=== PATIENT | female | born 1950 | race African-American/Black ===

== ENCOUNTER 2017-06-22 17:35 | Emergency (ER) | payer BC, MEDICAID, MEDICARE ==
[~2017-06-22] VITALS: Ht 160 cm; Wt 57.6 kg
[2017-06-22] MEDS ORDERED: MEMA1CAP PO (18:05)
[2017-06-22] MEDS ORDERED: DONE5TAB33 PO (18:05)
[2017-06-22] MEDS ORDERED: SODIUM CHLORIDE 0.9% 1,000 ML IV ONE (20:32)
[2017-06-22 21:07] LABS: BASOPHILS % 0.6 % (0.0-2.0); EOSINOPHILS % 0.4 % (0.0-5.0); HEMATOCRIT. 37.8 % (36.0-48.0); HEMOGLOBIN. 12.3 g/dL (12.0-16.0); LYMPHOCYTES % 19.1 % (20.0-50.0); MEAN CORPUSCULAR HEMOGLOBIN 27.3 pg (28.0-32.0); MONOCYTES % 7.2 % (2.0-8.0); NEUTROPHILS % 72.7 % (40.0-76.0); PLATELET 277 x1000/uL (130-400); RED CELL DISTRIBUTION WIDTH 13.9 % (11.6-14.6)
[2017-06-22 21:11] LABS: INR 1.1; PROTHROMBIN TIME 11.1 sec (9.4-11.6)
[2017-06-22 21:13] LABS: CHLORIDE 104 mEq/L (98-107)
[2017-06-22 22:12] LABS: CLARITY URINE CLEAR (CLEAR); COLOR URINE YELLOW (YELLOW); KETONES URINE NEGATIVE (NEGATIVE); LEUKOCYTE ESTERASE URINE NEGATIVE (NEGATIVE); NITRITE URINE NEGATIVE (NEGATIVE); OCCULT BLOOD URINE TRACE (NEGATIVE); PH URINE 6.5 (4.5-8.0); PROTEIN URINE NEGATIVE (NEGATIVE); SPECIFIC GRAVITY URINE 1.014 (1.005-1.030)
[2017-06-22 23:31] VITALS: BP 152/78
== END 2017-06-22 23:57 | disposition home or self-care (01) ==
LOC: ER 20:57
DX: E86.0 Dehydration (principal); R55 Syncope and collapse; F03.90 Unspecified dementia, unspecified severity, without behavioral disturbance, psychotic disturbance, mood disturbance, and anxiety
CPT/HCPCS: 36415; 70450; 71045; 80053; 81003; 84484; 85025; 85610; 93005; 96360; 96361; 99285; J7030; Z7610

== ENCOUNTER 2019-12-08 13:16 | Emergency (ER) | payer BC ==
[~2019-12-08] VITALS: Ht 160 cm; Wt 57.0 kg
[~2019-12-08 13:16] MED LIST: DONE5TAB33 PO; MEMA1CAP PO
[2019-12-08] MEDS ORDERED: LACTULOSE 20G/30ML UDC PO ONE (15:30)
[2019-12-08] MEDS ORDERED: MAGNESIUM CITRATE 300ML SOLUTION PO ONE (15:30)
[2019-12-08 20:08] VITALS: BP 168/71
== END 2019-12-08 20:10 | disposition home or self-care (01) ==
LOC: ER 13:27
DX: K59.00 Constipation, unspecified (principal); F03.90 Unspecified dementia, unspecified severity, without behavioral disturbance, psychotic disturbance, mood disturbance, and anxiety
CPT/HCPCS: 74018; 99283

== ENCOUNTER 2021-07-06 12:56 | Emergency (ER) | payer MEDICARE, BC ==
[~2021-07-06] VITALS: Ht 160 cm; Wt 63.0 kg
[2021-07-06] MEDS ORDERED: HALOPERIDOL LACTATE 5MG/ML VIAL IM ONE (16:45)
[2021-07-06] MEDS ORDERED: NA PHOS,M-B/NA PHOS,DI-BA ENEMA 118ML PR ONE (17:45)
[2021-07-06 19:30] VITALS: BP 123/83
== END 2021-07-06 19:32 | disposition home or self-care (01) ==
LOC: ER 12:56
DX: K59.00 Constipation, unspecified (principal); G30.9 Alzheimer's disease, unspecified; F02.80 Dementia in other diseases classified elsewhere, unspecified severity, without behavioral disturbance, psychotic disturbance, mood disturbance, and anxiety
CPT/HCPCS: 74021; 74176; 99284; J1630

== ENCOUNTER 2023-08-19 01:45 | Emergency (ER) | payer BC, MEDICARE ==
[~2023-08-19] VITALS: Ht 167.6 cm; Wt 73.0 kg
[2023-08-19 01:54] VITALS: O2SAT 96
[2023-08-19 05:25] VITALS: BP 140/68; PULSE 66; RESP 13; TEMP 98
== END 2023-08-19 05:40 | disposition home or self-care (01) ==
LOC: ER 01:55
DX: S09.90XA Unspecified injury of head, initial encounter (principal); F03.90 Unspecified dementia, unspecified severity, without behavioral disturbance, psychotic disturbance, mood disturbance, and anxiety; W18.39XA Other fall on same level, initial encounter; Y93.89 Activity, other specified; Y92.89 Other specified places as the place of occurrence of the external cause; Y99.8 Other external cause status
CPT/HCPCS: 99285

== ENCOUNTER 2024-04-09 12:15 | Emergency (ER) | payer MEDICARE ==
[~2024-04-09] VITALS: Ht 162.6 cm; Wt 50.0 kg
[2024-04-09 12:17] VITALS: O2SAT 99
[2024-04-09 12:50] VITALS: BP 123/39; PULSE 70; RESP 13; TEMP 36.83628; O2SAT 98
[2024-04-09] MEDS ORDERED: LIDO1ADH7 TP (13:46)
== END 2024-04-09 14:37 | disposition home or self-care (01) ==
LOC: ER 12:27
DX: M25.552 Pain in left hip (principal); F03.90 Unspecified dementia, unspecified severity, without behavioral disturbance, psychotic disturbance, mood disturbance, and anxiety; W18.39XA Other fall on same level, initial encounter; Y93.89 Activity, other specified; Y92.89 Other specified places as the place of occurrence of the external cause; Y99.8 Other external cause status
CPT/HCPCS: 99283; 73502; A4663; A4606